=== PATIENT | female | born 1930 | race Caucasian/White ===

== ENCOUNTER 2017-07-21 20:13 | Emergency (ER) | payer MEDICARE ==
[~2017-07-21] VITALS: Ht 154.9 cm; Wt 34.0 kg
[~2017-07-21 20:13] MED LIST: ACET325 PO; ACET500; ALBU4 PO; ALBU90OI INH; BUDE10.22 INH; BUDE6HFA INH; ESOM20 PO; FAMO20 PO; HYDPAM25 PO; LEVSOD50 PO; LOPE2C PO; MEGE40T PO; Mirtazapine7.5 MG PO; NAPR220 PO; Naproxen375 MG PO; OXYC5 PO; Pyridium100 MG PO; Questran Light210 GM PO; Questran4 GM PO; SODCHL1 PO
== END 2017-07-21 22:30 | disposition home or self-care (01) ==
LOC: ER 20:13
DX: I63.9 Cerebral infarction, unspecified (principal); G81.94 Hemiplegia, unspecified affecting left nondominant side; N19 Unspecified kidney failure; Z51.5 Encounter for palliative care; I25.2 Old myocardial infarction; Z90.49 Acquired absence of other specified parts of digestive tract; Z86.73 Personal history of transient ischemic attack (TIA), and cerebral infarction without residual deficits; Z90.10 Acquired absence of unspecified breast and nipple
CPT/HCPCS: 99283; J1642